=== PATIENT | male | born 1995 | race Two or more races ===

== ENCOUNTER 2017-04-23 19:23 | Emergency (ER) | payer OTHER ==
[~2017-04-23] VITALS: Ht 165.1 cm; Wt 63.0 kg
[2017-04-23] MEDS ORDERED: LEVA1TAB PO (19:36)
[2017-04-23] MEDS ORDERED: CELE1CAP4 PO (19:36)
--- NOTE | 2017-04-23 21:10 | REPUSA ---
Clinical history: Pain. Findings: Real-time ultrasound imaging of the testicles and scrotum was performed. The right testicle measures 4.3 x 2.1 x 2.9 cm. The left testicle measures 4.2 x 2.3 x 3.1 cm. The testicles demonstrat e normal echo texture and echogenicity. Normal color Doppler flow and arterial waveforms are seen ti aterally. There is a cyst in the head of the right epididymis measuring up to 3 mm. Multiple left-annika ed epididymal cysts are noted, the largest measuring up to 2 mm. No fluid collections are seen. Impression: Unremarkable ultrasound examination of the testicles. Bilateral epididymal cyst.
[2017-04-23 21:27] VITALS: BP 136/69
[2017-04-24] MEDS ORDERED: ULTR50TA8 PO (10:40)
[2017-04-24] MEDS ORDERED: IBUP-1022 PO (10:40)
== END 2017-04-23 21:34 | disposition home or self-care (01) ==
LOC: M ED 19:23
DX: N50.3 Cyst of epididymis (principal); Z79.899 Other long term (current) drug therapy; F17.210 Nicotine dependence, cigarettes, uncomplicated

== ENCOUNTER 2017-04-24 09:06 | Emergency (ER) | payer OTHER ==
[~2017-04-24] VITALS: Ht 165.1 cm; Wt 63.6 kg
[~2017-04-24 09:06] MED LIST: CELE1CAP4 PO; LEVA1TAB PO
[2017-04-24] MEDS ORDERED: traMADol 50 MG TAB PO ONE (10:00)
[2017-04-24] MEDS ORDERED: IBUPROFEN 800 MG TAB PO ONE (10:00)
[2017-04-24] MEDS ORDERED: ULTR50TA8 PO (10:40)
[2017-04-24] MEDS ORDERED: IBUP-1022 PO (10:40)
[2017-04-24 10:54] VITALS: BP 130/72
== END 2017-04-24 10:56 | disposition home or self-care (01) ==
LOC: M ED 09:06
DX: N50.3 Cyst of epididymis (principal); Z79.899 Other long term (current) drug therapy

== ENCOUNTER → 2017-06-02 | Outpatient (CLI) | payer OTHER ==
[~2017-06-02] MED LIST changes: +IBUP-1022 PO; +ULTR50TA8 PO
--- NOTE | 2017-06-16 00:37 | ECWPNPC ---
PATIENT NAME: JON CROWE : 1995 GENDER: MALE VISIT DATE: 06/02/2017 DISCHARGE DATE: 06/02/17 1256 VISIT LOCKED DATE TIME: PHYSICIAN: INDRA CARRASCO RESOURCE: INDRA CARRASCO REASON FOR APPOINTMENT 1. TESTICULAR PAIN HISTORY OF PRESENT ILLNESS FALL RISK SCREENING: SCREENING :NO FALLS IN THE PAST YEAR 22 YEAR OLD MALE PATIENT WITH HISTORY OF CHRONIC TESTICLE PAIN. PATIENT DESCRIBES THE PAIN SHARP AND THROBBING WITH A PAIN SCORE OF 6.5/10. PATIENT STATES HIS PAIN STARTED IN MARCH WITH NO SPECIFIC TRAUMA. PATIENT NOTICED SEVERE SWELLING IN THE TESTICLES AND SINCE THE SWELLING WENT DOWN THE PAIN IS STILL THERE. PATIENT STATES THAT ANY TYPE OF ACTIVITY INCLUDING RUNNING, SKIPPING, SQUATTING, BENDING, AND CARRYING ANY TYPE OF WEIGHT ON HIS SHOULDERS INCREASES THE PAIN IN GROIN AREA WHILE ICE AND LAYING ON HIS BACK HELPS TO DECREASE THE PAIN. PATIENT IS CURRENTLY USING TYLENOL AND IBUPROFEN TO AID IN PAIN RELIEF. PATIENT DENIES UNEXPLAINABLE WEIGHT LOSS, FEVER, CHILLS, NEW CHANGES ON HIS URINARY OR BOWEL CONTROL. PAIN SCREENING: PATIENT HAS A COMPLAINT OF ACUTE OR CHRONIC PAIN :YES CURRENT MEDICATIONS TAKING TYLENOL 325 MG TABLET 2 TABLETS NEEDED ORALLY EVERY 6 HRS TAKING IBUPROFEN 600 MG TABLET 1 TABLET WITH FOOD OR MILK ORALLY THREE TIMES A DAY NOT-TAKING LEVAQUIN 500 MG TABLET 1 TABLET ORALLY ONCE A DAY NOT-TAKING ULTRAM 50 MG TABLET 1 TABLET NEEDED ORALLY EVERY 6 HRS, MDD 4 MEDICATION LIST REVIEWED AND RECONCILED WITH THE PATIENT PAST MEDICAL HISTORY EPIDYMIS ALLERGIES N.K.D.A. SURGICAL HISTORY WISDOM TEETH FAMILY HISTORY FATHER: ALIVE MOTHER: ALIVE 3 BROTHER(S) , 2 SISTER(S) - HEALTHY. NO FAMILY HISTORY OF ANY UROLOGICAL DISEAES OR CANCERS. SOCIAL HISTORY GENERAL: TOBACCO USE ARE YOU A:CURRENT SMOKER ARE YOU INTERESTED IN QUITTING?THINKING ABOUT QUITTING COUNSELED THE PATIENT ON SMOKING CESSATION, EDUCATION [id number]/20/2017 HOW MANY CIGARETTES A DAY DO YOU SMOKE?6-10 PATIENT COUNSELED ON THE DANGERS OF TOBACCO USE AND URGED TO QUIT:06/02/2017 LUNG CANCER SCREENING SMOKING STATUS:CURRENT SMOKER ALCOHOL SCREENING POINTS5 INTERPRETATIONPOSITIVE RECREATIONAL DRUG USE DRUG USE?NO CAFFEINE CAFFEINE USE?YES HOW OFTEN AND HOW MUCH? COFFEE SEXUAL HX HAD SEX IN THE LAST 12 MONTHS (VAGINAL, ORAL, OR ANAL)?YES OCCUPATION: POLICE. MARITAL STATUS: SINGLE. JAINISM [id number] GNOSTICISM LANGUAGE LANGUAGES SPOKEN:[place]EN[place] EDUCATION LEVEL OF EDUCATION:NOT FINISHED COLLEGE PAIN CLINIC PFS, CLERGY, PUBLIC HEALTH REFERRALS HAS THE PATIENT BEEN EDUCATED REGARDING HIS/HER PLAN OF CARE?YES HAS THE PATIENT BEEN EDUCATED REGARDING PAIN, THE RISK FOR PAIN, THE IMPORTANCE OF EFFECTIVE PAIN MANAGEMENT, AND THE PAIN ASSESSMENT PROCESS?YES ADVANCE DIRECTIVES HEALTH CARE PROXY?NO DO YOU HAVE A DNR?NO LIVING WILL?NO POWER OF TAKE OUT WAITER?NO HOSPITALIZATION/MAJOR DIAGNOSTIC PROCEDURE DENIES PAST HOSPITALIZATION REVIEW OF SYSTEMS REVIEWED BY: PROVIDER: INDRA CARRASCO MD . CONSTITUTIONAL: ANY CHANGE IN YOUR MEDICAL CONDITION? NO . CHILLS NO . FEVER NO . INFECTION: DO YOU HAVE NEW INFECTIONS? NO . DO YOU HAVE HISTORY OF MRSA? NO . MUSCULOSKELETAL: ANY NEW PATTERNS OF PAIN OR NUMBNESS? NO . SYTEMIC LUPUS NO . GASTROENTEROLOGY: ANY NEW CHANGE IN BOWEL CONTROL? NO . BARRETTS ESOPHAGUS NO . CIRRHOSIS NO . HEPATITIS NO . LIVER FAILURE NO . ACID REFLUX NO . UNEXPLAINED WEIGHT LOSS NO . GENITOURINARY: ANY NEW CHANGE IN BLADDER CONTROL? NO . IS THERE A CHANCE YOU COULD BE ? NO . HEMATOLOGY/LYMPH: DO YOU TAKE ANY BLOOD THINNERS? (FOR EXAMPLE- COUMADIN, PLAVIX, AGGRENOX, PLATEL, PRADAXA, OR XARELTO) NO . WHEN WAS YOUR LAST DOSE? DATE: TIME: . LOW PLATELET COUNT NO . SICKLE CELL DISEASE NO . VON WILLIEBRANDS NO . FACTOR V LEIDEN NO . THALLASEMIA NO . ANEMIA NO . EASY BRUISING NO . NEUROLOGY: HAVE YOU FALLEN IN THE PAST 6 MONTHS? NO . ANY NEW EXTREMITY NUMBNESS OR WEAKNESS? NO . HEAD INJURY NO . DEMENTIA NO . CEREBRAL PALSY NO . MULTIPLE SCLEROSIS NO . DIZZINESS NO . HEADACHE NO . STROKES NO . VERTIGO NO . CARDIOLOGY: DO YOU HAVE A PACEMAKER OR DEFIBRILLATOR? NO . ANGINA NO . HEART ATTACK NO . HEART SURGERY NO . CONGESTIVE HEART FAILURE/FLUID OVERLOAD NO . CHEST PAIN NO . HIGH BLOOD PRESSURE NO . IRREGULAR HEART BEAT NO . RESPIRATORY: HAVE YOU BEEN SICK IN THE PAST WEEK? YES, URI RECENTLY . FEVER NO . FLU LIKE SYMPTOMS? NO . CPAP NO . BYPAP NO . ASTHMA NO . EMPHYSEMA NO . CHRONIC LUNG DISEASES NO . SHORTNESS OF BREATH ON EXERTION NO . COUGH NO . SNORING NO . INTEGUMENTARY: DO YOU HAVE ANY RASHES OR OPEN SORES? NO . ALLERGIC/IMMUNO: ARE YOU ALLERGIC TO SHELLFISH OR IV DYE? NO . ANY NEW ALLERGIES? NO . PSYCHIATRIC: DO YOU HAVE THOUGHTS OF HURTING YOURSELF OR SOMEONE ELSE? NO . ARE YOU ABUSED, NEGLECTED, OR IN AN UNSAFE ENVIRONMENT? NO . ENDOCRINOLOGY: ARE YOU DIABETIC? NO . THYROID DISORDER NO . OTHER: DO YOU NEED ANY PRESCRIPTIONS? NO . IF YES, PLEASE LIST: ____ . ANY NEW PROBLEMS WITH YOUR MEDICATIONS? NO . WHEN DID YOU LAST EAT? ____ . WHEN DID YOU LAST DRINK? ____ . WHAT DID YOU LAST DRINK? ____ . NAME OF PERSON DRIVING YOU HOME? ____ . DO YOU HAVE ANY OTHER QUESTIONS OR CONCERNS NO, PT STATES HE HAS NOT RECEIVED FLU VACCINE THIS YEAR, BUT PLANS TO . VITAL SIGNS WT 139 LBS, HT 65 IN, BMI 23.13 INDEX, BP 113/84 MM HG, HR 72 /MIN, RR 16 /MIN, TEMP 98.4 F, OXYGEN SAT % 99%, NA INITIALS SC 11:05, REVIEWED BY: EM. EXAMINATION : PATIENT IS ALERT O X 3 AND COOPERATIVE. ALLODYNIA OVER THE RIGHT SIDE OF THE TESTICLE. ASSESSMENTS NEURALGIA AND NEURITIS, UNSPECIFIED - M79.2 (PRIMARY) TREATMENT NEURALGIA AND NEURITIS, UNSPECIFIED NOTES: WE DISCUSSED SEVERAL ISSUES WITH MR. BROWNING'S PAIN MANAGEMENT CASE. AT THIS TIME I WOULD LIKE THE PATIENT TO START USING GABAPENTIN TO SEE IF IT WILL AID IN THE NEUROPATHIC PAIN. PATIENT WAS ADVISED TO STOP THE MEDICATION IF HE HAS ANY ADVERSE SIDE EFFECTS. WE DISCUSSED SEVERAL OPTIONS THE PATIENT HAS TO TRY TO AID IN PAIN RELIEF. WE DISCUSSED IN DETAIL THE DCS AND GAVE THE PATIENT INFORMATION TO REVIEW. PATIENT WILL FOLLOW UP IN 2 WEEKS TO FURTHER DISCUSS THE DCS. INSTRUCTIONS WERE GIVEN, QUESTIONS WERE ANSWERED, PATIENT REPORTS UNDERSTANDING AND AGREES WITH THE PLAN. I, VIVIENNE PAYNE, DOCUMENTED THE ABOVE INFORMATION ACTING A SCRIBE FOR DR. CARRASCO. I HAVE REVIEWED THE ABOVE DOCUMENT, WRITTEN BY VIVIENNE HSIEH AND I VERIFY THAT IT IS ACCURATE. DEAR DR. VALENTIN: THANK YOU FOR YOUR KIND REFERRAL OF MR. CROWE. IF YOU WANT TO DISCUSS HER/HIS CASE WITH ME PLEASE CALL ME AT THE PAIN CENTER AT [phone]. SINCERELY, INDRA CARRASCO MD PAIN MEDICINE. OTHERS START GABAPENTIN CAPSULE, 300 MG, 1 CAPSULE, ORALLY, BEFORE BEDTIME FOR PAIN MDD1, 30 DAY(S), 30, REFILLS 1 PROCEDURE CODES FA211 ESTABILISHED PATIENT [facility] CHARGE G8427 DOC MEDS VERIFIED W/PT OR RE G8730 PAIN ASSESS POS TOOL F/U PLAN DOC DISPOSITION & COMMUNICATION FOLLOW UP 3 WEEKS ELECTRONICALLY SIGNED BY INDRA CARRASCO MD ON 06/15/2017 AT 02:12 PM EDT DISCLAIMER : THIS IS A VISIT SUMMARY EXTRACTED FROM THE [employer] CHART. IT IS NOT A COPY OF THE [employer] PROGRESS NOTE. MTDD
== END ==
LOC: M PAIN 10:45
PROVIDERS: ATTEND Anesthesiology
DX: G89.29 Other chronic pain (principal); M79.2 Neuralgia and neuritis, unspecified; F17.210 Nicotine dependence, cigarettes, uncomplicated; Z79.1 Long term (current) use of non-steroidal anti-inflammatories (NSAID); Z79.899 Other long term (current) drug therapy

== ENCOUNTER → 2017-06-21 | Outpatient (CLI) | payer OTHER ==
--- NOTE | 2017-07-10 00:22 | ECWPNPC ---
PATIENT NAME: JON CROWE : 1995 GENDER: MALE VISIT DATE: 06/21/2017 DISCHARGE DATE: 06/21/17 1708 VISIT LOCKED DATE TIME: PHYSICIAN: INDRA CARRASCO RESOURCE: INDRA CARRASCO REASON FOR APPOINTMENT 1. TESTICULAR PAIN HISTORY OF PRESENT ILLNESS HISTORY OF PRESENT ILLNESS: PAIN THE PATIENT DESCRIBES THE PAIN... 22 YEAR OLD MALE PATIENT WITH HISTORY OF CHRONIC TESTICLE PAIN. PATIENT DESCRIBES THE PAIN SHARP AND THROBBING WITH A PAIN SCORE OF 6.5/10. PATIENT STATES HIS PAIN STARTED IN MARCH WITH NO SPECIFIC TRAUMA. PATIENT NOTICED SEVERE SWELLING IN THE TESTICLES AND SINCE THE SWELLING WENT DOWN THE PAIN IS STILL THERE. PATIENT STATES THAT ANY TYPE OF ACTIVITY INCLUDING RUNNING, SKIPPING, SQUATTING, BENDING, AND CARRYING ANY TYPE OF WEIGHT ON HIS SHOULDERS INCREASES THE PAIN IN GROIN AREA WHILE ICE AND LAYING ON HIS BACK HELPS TO DECREASE THE PAIN. PATIENT IS CURRENTLY USING GABAPENTIN, TYLENOL AND IBUPROFEN TO AID IN PAIN RELIEF. PATIENT DENIES UNEXPLAINABLE WEIGHT LOSS, FEVER, CHILLS, NEW CHANGES ON HIS URINARY OR BOWEL CONTROL. FALL RISK SCREENING: SCREENING :NO FALLS IN THE PAST YEAR CURRENT MEDICATIONS TAKING GABAPENTIN 300 MG CAPSULE 2 CAPSULES ORALLY THREE TIMES A DAY TAKING AMITRIPTYLINE HCL 10 MG TABLET 1 TABLET ORALLY ONCE A DAY, NOTES: UNSURE OF DOSE NOT-TAKING LEVAQUIN 500 MG TABLET 1 TABLET ORALLY ONCE A DAY NOT-TAKING ULTRAM 50 MG TABLET 1 TABLET NEEDED ORALLY EVERY 6 HRS, MDD 4 NOT-TAKING TYLENOL 325 MG TABLET 2 TABLETS NEEDED ORALLY EVERY 6 HRS NOT-TAKING IBUPROFEN 600 MG TABLET 1 TABLET WITH FOOD OR MILK ORALLY THREE TIMES A DAY MEDICATION LIST REVIEWED AND RECONCILED WITH THE PATIENT PAST MEDICAL HISTORY EPIDYMIS ALLERGIES N.K.D.A. SURGICAL HISTORY WISDOM TEETH FAMILY HISTORY FATHER: ALIVE MOTHER: ALIVE 3 BROTHER(S) , 2 SISTER(S) - HEALTHY. NO FAMILY HISTORY OF ANY UROLOGICAL DISEAES OR CANCERS. SOCIAL HISTORY GENERAL: TOBACCO USE ARE YOU A:CURRENT SMOKER ARE YOU INTERESTED IN QUITTING?READY TO QUIT COUNSELED THE PATIENT ON TOBACCO USE, CESSATION [id number]/08/2017 HOW MANY CIGARETTES A DAY DO YOU SMOKE?6-10 PATIENT COUNSELED ON THE DANGERS OF TOBACCO USE AND URGED TO QUIT:06/21/2017 LUNG CANCER SCREENING SMOKING STATUS:CURRENT SMOKER ALCOHOL SCREENING DID YOU HAVE A DRINK CONTAINING ALCOHOL IN THE PAST YEAR?YES HOW MANY DRINKS DID YOU HAVE ON A TYPICAL DAY WHEN YOU WERE DRINKING IN THE PAST YEAR?1 OR 2 (0 POINTS) POINTS5 INTERPRETATIONPOSITIVE HOW OFTEN DID YOU HAVE A DRINK CONTAINING ALCOHOL IN THE PAST YEAR?FOUR OR MORE TIMES A WEEK (4 POINTS) HOW OFTEN DID YOU HAVE SIX OR MORE DRINKS ON ONE OCCASION IN THE PAST YEAR?LESS THAN MONTHLY (1 POINT) RECREATIONAL DRUG USE DRUG USE?NO CAFFEINE CAFFEINE USE?YES HOW OFTEN AND HOW MUCH? COFFEE SEXUAL HX HAD SEX IN THE LAST 12 MONTHS (VAGINAL, ORAL, OR ANAL)?YES OCCUPATION: [employer]. MARITAL STATUS: SINGLE. SABIANIST [id number] CONFUCIANISM LANGUAGE LANGUAGES SPOKEN:ITALIAN EDUCATION LEVEL OF EDUCATION:NOT FINISHED COLLEGE PAIN CLINIC PFS, CLERGY, PUBLIC HEALTH REFERRALS HAS THE PATIENT BEEN EDUCATED REGARDING HIS/HER PLAN OF CARE?YES HAS THE PATIENT BEEN EDUCATED REGARDING PAIN, THE RISK FOR PAIN, THE IMPORTANCE OF EFFECTIVE PAIN MANAGEMENT, AND THE PAIN ASSESSMENT PROCESS?YES ADVANCE DIRECTIVES HEALTH CARE PROXY?NO DO YOU HAVE A DNR?NO LIVING WILL?NO POWER OF CARE SUPPORT REPRESENTATIVE?NO HOSPITALIZATION/MAJOR DIAGNOSTIC PROCEDURE DENIES PAST HOSPITALIZATION REVIEW OF SYSTEMS REVIEWED BY: PROVIDER: INDRA CARRASCO MD . CONSTITUTIONAL: ANY CHANGE IN YOUR MEDICAL CONDITION? NO . CHILLS NO . FEVER NO . INFECTION: DO YOU HAVE NEW INFECTIONS? NO . DO YOU HAVE HISTORY OF MRSA? NO . MUSCULOSKELETAL: ANY NEW PATTERNS OF PAIN OR NUMBNESS? NO . GASTROENTEROLOGY: ANY NEW CHANGE IN BOWEL CONTROL? NO . GENITOURINARY: ANY NEW CHANGE IN BLADDER CONTROL? NO . IS THERE A CHANCE YOU COULD BE ? NO . HEMATOLOGY/LYMPH: DO YOU TAKE ANY BLOOD THINNERS? (FOR EXAMPLE- COUMADIN, PLAVIX, AGGRENOX, PLATEL, PRADAXA, OR XARELTO) NO . WHEN WAS YOUR LAST DOSE? DATE: TIME: . NEUROLOGY: HAVE YOU FALLEN IN THE PAST 6 MONTHS? NO . ANY NEW EXTREMITY NUMBNESS OR WEAKNESS? NO . CARDIOLOGY: DO YOU HAVE A PACEMAKER OR DEFIBRILLATOR? NO . RESPIRATORY: HAVE YOU BEEN SICK IN THE PAST WEEK? NO . FEVER NO . FLU LIKE SYMPTOMS? NO . COUGH NO . INTEGUMENTARY: DO YOU HAVE ANY RASHES OR OPEN SORES? NO . ALLERGIC/IMMUNO: ARE YOU ALLERGIC TO SHELLFISH OR IV DYE? NO . ANY NEW ALLERGIES? NO . PSYCHIATRIC: DO YOU HAVE THOUGHTS OF HURTING YOURSELF OR SOMEONE ELSE? NO . ARE YOU ABUSED, NEGLECTED, OR IN AN UNSAFE ENVIRONMENT? NO . ENDOCRINOLOGY: ARE YOU DIABETIC? NO . OTHER: DO YOU NEED ANY PRESCRIPTIONS? NO . IF YES, PLEASE LIST: ____ . ANY NEW PROBLEMS WITH YOUR MEDICATIONS? NO . WHEN DID YOU LAST EAT? ____ . WHEN DID YOU LAST DRINK? ____ . WHAT DID YOU LAST DRINK? ____ . NAME OF PERSON DRIVING YOU HOME? ____ . DO YOU HAVE ANY OTHER QUESTIONS OR CONCERNS NO . VITAL SIGNS WT 140.0 LBS, HT 65 IN, BMI 23.29 INDEX, BP 121/69 MM HG, HR 64 /MIN, RR 16 /MIN, TEMP 98.1 F, OXYGEN SAT % 99%, NA INITIALS TL 1521, REVIEWED BY: BRENDA. EXAMINATION : PATIENT IS ALERT O X 3 AND COOPERATIVE. ASSESSMENTS NEURALGIA AND NEURITIS, UNSPECIFIED - M79.2 (PRIMARY) TREATMENT NEURALGIA AND NEURITIS, UNSPECIFIED NOTES: WE DISCUSSED SEVERAL ISSUES WITH MR. BROWNING'S PAIN MANAGEMENT CASE. AT THIS TIME THE PATIENT WILL CONTINUE WITH THE SAME MEDICATION BEFORE. WE DISCUSSED IN DETAIL THE DCS TRIAL PROCESS THE PATIENT HAD QUESTIONS ABOUT THE PROCESS. PATIENT WAS MADE AWARE THAT THE TRIAL WILL LAST 5 DAYS WITH THE CABLES COMING OUT OF THE LOWER BACK WITH A BATTERY SOURCE THAT WILL BE PLACED IN A BELT. THE CABLES WILL BE PLACED ON A MONDAY AND REMOVED ON A MONDAY. PATIENT WAS MADE AWARE THAT HE WILL NEED TO STAY ONE NIGHT IN THE HOSPITAL AND TO AVOID PAIN MEDICATIONS SO THAT HE MAY HAVE AN ACCURATE TRIAL. AT THIS TIME THE PATIENT WOULD LIKE TO WAIT FOR THE DCS TRIAL AND WOULD LIKE TO DO MORE RESEARCH. PATIENT WILL FOLLOW UP WITH THE EQUIPMENT INSPECTOR TO DISCUSS MEDICATIONS. PATIENT WAS ADVISED TO BRING THE GABAPENTIN TO THE NEXT VISIT TO BE SURE WHAT AMOUNT THE PATIENT IS USING DAILY.. PATIENT MAY BE A CANDIDATE FOR [facility] BUT I WOULD LIKE TO HOLD OFF ON THE MEDICATION UNTIL WE KNOW WHAT DOSE HE IS USING FOR GABAPENTIN. PATIENT WILL FOLLOW UP IN 6 WEEKS. INSTRUCTIONS WERE GIVEN, QUESTIONS WERE ANSWERED, PATIENT REPORTS UNDERSTANDING AND AGREES WITH THE PLAN. I, VIVIENNE PAYNE, DOCUMENTED THE ABOVE INFORMATION ACTING A SCRIBE FOR DR. CARRASCO. I HAVE REVIEWED THE ABOVE DOCUMENT, WRITTEN BY VIVIENNE HSIEH AND I VERIFY THAT IT IS ACCURATE. PROCEDURE CODES FA211 ESTABILISHED PATIENT [facility] CHARGE G8427 DOC MEDS VERIFIED W/PT OR RE G2216 PAIN ASSESS POS TOOL F/U PLAN DOC DISPOSITION & COMMUNICATION FOLLOW UP 3 WEEKS ELECTRONICALLY SIGNED BY INDRA CARRASCO MD ON 07/09/2017 AT 04:28 PM EST DISCLAIMER : THIS IS A VISIT SUMMARY EXTRACTED FROM THE [employer] CHART. IT IS NOT A COPY OF THE [employer] PROGRESS NOTE. NBAD
== END ==
LOC: M PAIN 15:15
PROVIDERS: ATTEND Anesthesiology
DX: M79.2 Neuralgia and neuritis, unspecified (principal); G89.29 Other chronic pain; N50.819 Testicular pain, unspecified; F17.210 Nicotine dependence, cigarettes, uncomplicated; Z79.899 Other long term (current) drug therapy

== ENCOUNTER → 2017-07-05 | Outpatient (CLI) | payer OTHER ==
--- NOTE | 2017-07-17 00:20 | ECWPNPC ---
PATIENT NAME: JON CROWE : 1995 GENDER: MALE VISIT DATE: 07/05/2017 DISCHARGE DATE: 07/05/17 1125 VISIT LOCKED DATE TIME: PHYSICIAN: LYNN FIERRO RESOURCE: LYNN FIERRO REASON FOR APPOINTMENT 1. MED MANAGEMENT HISTORY OF PRESENT ILLNESS HISTORY OF PRESENT ILLNESS: PAIN THE PATIENT DESCRIBES THE PAIN... FALL RISK SCREENING: SCREENING :NO FALLS IN THE PAST YEAR TODAY'S VISIT: NOTES: RATES PAIN TODAY 7.5/10. PAIN IS DESCRIBES TENDER AND THROBBING WITH RADIATIONTO THE BILATERAL UPPER THIGH FROM HTE ILIOINGUINAL REGION. HAS BEEN ON GABAPENTIN AND AMITRYPTLINE WITHOUT MUCH EFFECT. HAS PERSISTANT ACID REFLUX. . CURRENT MEDICATIONS TAKING TYLENOL 325 MG TABLET 2 TABLETS NEEDED ORALLY EVERY 6 HRS TAKING IBUPROFEN 600 MG TABLET 1 TABLET WITH FOOD OR MILK ORALLY THREE TIMES A DAY TAKING GABAPENTIN 300 MG CAPSULE 2 CAPSULES ORALLY THREE TIMES A DAY TAKING AMITRIPTYLINE HCL 10 MG TABLET 1 TABLET ORALLY ONCE A DAY NOT-TAKING LEVAQUIN 500 MG TABLET 1 TABLET ORALLY ONCE A DAY NOT-TAKING ULTRAM 50 MG TABLET 1 TABLET NEEDED ORALLY EVERY 6 HRS, MDD 4 MEDICATION LIST REVIEWED AND RECONCILED WITH THE PATIENT PAST MEDICAL HISTORY EPIDYMIS ALLERGIES N.K.D.A. SURGICAL HISTORY WISDOM TEETH SOCIAL HISTORY GENERAL: TOBACCO USE ARE YOU A:CURRENT SMOKER ARE YOU INTERESTED IN QUITTING?READY TO QUIT COUNSELED THE PATIENT ON TOBACCO USE, CESSATION [id number]/22/2017 PT IS DOING WELL ON OWN - DOWN TO 2 CIGARETTS PER WEEK NOW HOW MANY CIGARETTES A DAY DO YOU SMOKE?6-10 PATIENT COUNSELED ON THE DANGERS OF TOBACCO USE AND URGED TO QUIT:06/21/2017 LUNG CANCER SCREENING SMOKING STATUS:CURRENT SMOKER ALCOHOL SCREENING DID YOU HAVE A DRINK CONTAINING ALCOHOL IN THE PAST YEAR?YES HOW MANY DRINKS DID YOU HAVE ON A TYPICAL DAY WHEN YOU WERE DRINKING IN THE PAST YEAR?1 OR 2 (0 POINTS) POINTS5 INTERPRETATIONPOSITIVE HOW OFTEN DID YOU HAVE A DRINK CONTAINING ALCOHOL IN THE PAST YEAR?FOUR OR MORE TIMES A WEEK (4 POINTS) HOW OFTEN DID YOU HAVE SIX OR MORE DRINKS ON ONE OCCASION IN THE PAST YEAR?LESS THAN MONTHLY (1 POINT) RECREATIONAL DRUG USE DRUG USE?NO CAFFEINE CAFFEINE USE?YES HOW OFTEN AND HOW MUCH? COFFEE SEXUAL HX HAD SEX IN THE LAST 12 MONTHS (VAGINAL, ORAL, OR ANAL)?YES OCCUPATION: [employer]. MARITAL STATUS: SINGLE. JEWISH [id number] JAINISM LANGUAGE LANGUAGES SPOKEN:WELSH EDUCATION LEVEL OF EDUCATION:NOT FINISHED COLLEGE PAIN CLINIC PFS, CLERGY, PUBLIC HEALTH REFERRALS HAS THE PATIENT BEEN EDUCATED REGARDING HIS/HER PLAN OF CARE?YES HAS THE PATIENT BEEN EDUCATED REGARDING PAIN, THE RISK FOR PAIN, THE IMPORTANCE OF EFFECTIVE PAIN MANAGEMENT, AND THE PAIN ASSESSMENT PROCESS?YES ADVANCE DIRECTIVES HEALTH CARE PROXY?NO DO YOU HAVE A DNR?NO LIVING WILL?NO POWER OF COLLEGE SPECIALIST?NO REVIEW OF SYSTEMS REVIEWED BY: PROVIDER: . CONSTITUTIONAL: ANY CHANGE IN YOUR MEDICAL CONDITION? NO . CHILLS NO . FEVER NO . INFECTION: DO YOU HAVE NEW INFECTIONS? NO . DO YOU HAVE HISTORY OF MRSA? NO . MUSCULOSKELETAL: ANY NEW PATTERNS OF PAIN OR NUMBNESS? NO . GASTROENTEROLOGY: ANY NEW CHANGE IN BOWEL CONTROL? NO . GENITOURINARY: ANY NEW CHANGE IN BLADDER CONTROL? NO . IS THERE A CHANCE YOU COULD BE ? NO . HEMATOLOGY/LYMPH: DO YOU TAKE ANY BLOOD THINNERS? (FOR EXAMPLE- COUMADIN, PLAVIX, AGGRENOX, PLATEL, PRADAXA, OR XARELTO) NO . WHEN WAS YOUR LAST DOSE? DATE: TIME: . NEUROLOGY: HAVE YOU FALLEN IN THE PAST 6 MONTHS? NO . ANY NEW EXTREMITY NUMBNESS OR WEAKNESS? NO . CARDIOLOGY: DO YOU HAVE A PACEMAKER OR DEFIBRILLATOR? NO . RESPIRATORY: HAVE YOU BEEN SICK IN THE PAST WEEK? NO . FEVER NO . FLU LIKE SYMPTOMS? NO . COUGH NO . INTEGUMENTARY: DO YOU HAVE ANY RASHES OR OPEN SORES? NO . ALLERGIC/IMMUNO: ARE YOU ALLERGIC TO SHELLFISH OR IV DYE? NO . ANY NEW ALLERGIES? NO . PSYCHIATRIC: DO YOU HAVE THOUGHTS OF HURTING YOURSELF OR SOMEONE ELSE? NO . ARE YOU ABUSED, NEGLECTED, OR IN AN UNSAFE ENVIRONMENT? NO . ENDOCRINOLOGY: ARE YOU DIABETIC? NO . OTHER: DO YOU NEED ANY PRESCRIPTIONS? NO . IF YES, PLEASE LIST: ____ . ANY NEW PROBLEMS WITH YOUR MEDICATIONS? YES, GABAPENTIN DOES NOT SEEM TO BE HELPING ANY . WHEN DID YOU LAST EAT? ____ . WHEN DID YOU LAST DRINK? ____ . WHAT DID YOU LAST DRINK? ____ . NAME OF PERSON DRIVING YOU HOME? ____ . DO YOU HAVE ANY OTHER QUESTIONS OR CONCERNS NO . VITAL SIGNS WT 140 LBS, HT 65 IN, BMI 23.29 INDEX, BP 126/73 MM HG, HR 71 /MIN, RR 16 /MIN, TEMP 98.1 F, OXYGEN SAT % 98%, NA INITIALS AW 1002, REVIEWED BY: NL. EXAMINATION GENERAL EXAMINATION: PSYCHALERT , ORIENTED X 3 , APPROPRIATE MOOD AND AFFECT , GOOD EYE CONTACT. LUNGS:CLEAR TO AUSCULTATION BILATERALLY. HEART:NORMAL S1S2, NO MURMURS, CLICK OR RUBS. ABDOMEN:HYPERSENSITIVE TO LIGHT TOUCH BILATERALLY OVER ILIOINGUINAL REGIONS AND UPPER MEDIAL THIGH. . 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 TREATMENT TESTICULAR PAIN STOP AMITRIPTYLINE HCL TABLET, 10 MG, 1 TABLET, ORALLY, ONCE A DAY REFILL ULTRAM TABLET, 50 MG, 1 TABLET NEEDED, ORALLY, EVERY 6 HRS, MDD 4, 10 DAY(S), 40, REFILLS 0 START LYRICA CAPSULE, 75 MG, 1 CAPSULE, ORALLY, TWICE A DAY, 30 DAY(S), 60 CAPSULE, REFILLS 1 START CYCLOBENZAPRINE HCL TABLET, 10 MG, 1 TABLET NEEDED, ORALLY, THREE TIMES A DAY, 30 DAY(S), 90 TABLET, REFILLS [address] [facility] PELVIS W/O FOL BY [id number],SUSAN M 07/05/2017 11:08:44 AM > TESTICULAR PAIN AND SWELLING NOTES: USE IBUPROFEN INFREQUENTLY - USE FOR TESTICULAR SWELLING IF NEEDED. PROCEDURE CODES FA211 ESTABILISHED PATIENT [facility] CHARGE DISPOSITION & COMMUNICATION FOLLOW UP 3 WEEKS (REASON: CHECK AUTH FOR CT OF ABD AND PELVIS) ELECTRONICALLY SIGNED BY ARIELA VILLALOBOS ON 07/15/2017 AT 01:28 PM EST DISCLAIMER : THIS IS A VISIT SUMMARY EXTRACTED FROM THE [employer] CHART. IT IS NOT A COPY OF THE [employer] PROGRESS NOTE. ARMA
== END ==
LOC: M PAIN 09:45
PROVIDERS: ATTEND Nurse Practitioner Family
DX: G89.29 Other chronic pain (principal); N50.819 Testicular pain, unspecified; G57.80 Other specified mononeuropathies of unspecified lower limb; F17.210 Nicotine dependence, cigarettes, uncomplicated; Z79.1 Long term (current) use of non-steroidal anti-inflammatories (NSAID); Z79.899 Other long term (current) drug therapy

== ENCOUNTER → 2017-07-14 | Outpatient (CLI) | payer OTHER ==
[~2017-07-14] MED LIST changes: +GASTROGRAFIN SOLUTION 30ML (Q9963) As Ordered ONE; +ISOVUE-370 76% 100ML VIAL (Q9967) As Ordered ONE
--- NOTE | 2017-07-14 15:31 | REP ---
Clinical: Groin and testicular pain. Technique: Axial contrast enhanced images of the pelvis using oral (per protocol) and 100 ml Isovue 370 intravenous contrast material with coronal and sagittal re-formations. Findings: Visualized small and large bowel including the appendix is normal. Pelvis demonstrates normal bladder and age appropriate prostate/seminal vesicles. No pelvic fluid, free air, or adenopathy. Vasculature appears normal. Groin and scrotum appears normal by CT evaluation. Surrounding osseous structures are intact. Impression: Normal pelvic CT. Signed by Charlie Cameron MD 07/14/2017 03:23 P
== END ==
LOC: M RAD 13:07
PROVIDERS: ATTEND Nurse Practitioner Family
DX: N50.819 Testicular pain, unspecified (principal)

== ENCOUNTER → 2017-08-02 | Outpatient (CLI) | payer OTHER | LOC: M PAIN 14:00 | DX: N50.819 Testicular pain, unspecified (principal); G57.80 Other specified mononeuropathies of unspecified lower limb; F17.210 Nicotine dependence, cigarettes, uncomplicated; Z79.1 Long term (current) use of non-steroidal anti-inflammatories (NSAID); Z79.899 Other long term (current) drug therapy | CPT/HCPCS: G0463 ==

== ENCOUNTER → 2017-08-25 | Outpatient (CLI) | payer OTHER | LOC: M PAIN 09:15 | DX: N50.819 Testicular pain, unspecified (principal); G57.80 Other specified mononeuropathies of unspecified lower limb; F17.210 Nicotine dependence, cigarettes, uncomplicated; Z79.1 Long term (current) use of non-steroidal anti-inflammatories (NSAID); Z79.899 Other long term (current) drug therapy | CPT/HCPCS: G0463 ==

== ENCOUNTER → 2017-09-22 | Outpatient (CLI) | payer OTHER | LOC: M PAIN 09:15 | DX: N50.819 Testicular pain, unspecified (principal); G57.80 Other specified mononeuropathies of unspecified lower limb; F17.210 Nicotine dependence, cigarettes, uncomplicated; Z79.1 Long term (current) use of non-steroidal anti-inflammatories (NSAID); Z79.899 Other long term (current) drug therapy | CPT/HCPCS: G0463 ==

== ENCOUNTER → 2017-10-02 | Outpatient (CLI) | payer OTHER | LOC: M PAIN 15:15 | DX: G89.29 Other chronic pain (principal); N50.819 Testicular pain, unspecified; G57.80 Other specified mononeuropathies of unspecified lower limb; F17.210 Nicotine dependence, cigarettes, uncomplicated; Z79.899 Other long term (current) drug therapy | CPT/HCPCS: G0463 ==

== ENCOUNTER → 2017-10-16 | Outpatient (CLI) | payer OTHER ==
[~2017-10-16] MED LIST changes: -CELE1CAP4 PO; -GASTROGRAFIN SOLUTION 30ML (Q9963) As Ordered ONE; -IBUP-1022 PO; -ISOVUE-370 76% 100ML VIAL (Q9967) As Ordered ONE; -LEVA1TAB PO; +PROHANCE 279.3MG/ML 15ML VIAL (A9576) As Ordered; -ULTR50TA8 PO
== END ==
LOC: M RAD 12:32
DX: N28.1 Cyst of kidney, acquired (principal)
CPT/HCPCS: A9576

== ENCOUNTER 2017-12-04 17:28 | Emergency (ER) | payer OTHER ==
[2017-12-04] MEDS: NS 1,000 ML IV ×2 (18:43→20:30)
[2017-12-04] MEDS: ONDANSETRON 4MG/2ML VIAL (J2405) IV (18:43)
[2017-12-04] MEDS: MORPHINE 4 MG/ML 1ML VIAL/SYRINGE (J2270) IV ×2 (18:44→20:26)
[2017-12-04 18:57] LABS: BASO % 0.2 % (0.0-1.0); HEMATOCRIT 45.2 % (42.0-52.0); HEMOGLOBIN 16.1 g/dl (13.5-17.5); IMMATURE GRANULOCYTE % 0.3 % (0-3.0); LYMPH # 0.6 10^3/uL (1.5-6.5); LYMPH % 4.4 % (24.0-44.0); MEAN CORPUSCULAR HEMOGLOBIN 29.9 pg (27.0-33.0); MEAN CORPUSCULAR HGB CONC 35.6 g/dl (32.0-36.5); MONO # 0.5 10^3/uL (0.0-0.8); MONO % 4.1 % (0.0-5.0); NEUTROPHILS # 11.9 10^3/uL (1.8-7.7); PLATELET COUNT, AUTOMATED 299 10^3/uL (150-450); RED BLOOD COUNT 5.38 10^6/uL (4.30-6.10); WHITE BLOOD COUNT 13.1 10^3/uL (4.0-10.0)
[2017-12-04] MEDS ORDERED: ISOVUE-370 76% 100ML VIAL (Q9967) As Ordered (19:23)
[2017-12-04 19:26] LABS: ALBUMIN 4.7 GM/DL (3.2-5.2); ALBUMIN/GLOBULIN RATIO 1.07 (1.00-1.93); ALKALINE PHOSPHATASE 60 U/L (45-117); ALT/SGPT 30 U/L (12-78); ANION GAP 11 MEQ/L (8-16); AST/SGOT 19 U/L (7-37); BILIRUBIN,DIRECT 0.2 MG/DL (0.0-0.2); BILIRUBIN,TOTAL 0.9 MG/DL (0.2-1.0); BLOOD UREA NITROGEN 17 MG/DL (7-18); CALCIUM LEVEL 9.5 MG/DL (8.5-10.1); CARBON DIOXIDE LEVEL 24 MEQ/L (21-32); CHLORIDE LEVEL 102 MEQ/L (98-107); CREATININE FOR GFR 1.13 MG/DL (0.70-1.30); GLOMERULAR FILTRATION RATE > 60.0 (>60); GLUCOSE, FASTING 109 MG/DL (70-100); LIPASE 66 U/L (73-393); POTASSIUM SERUM 3.5 MEQ/L (3.5-5.1); SODIUM LEVEL 137 MEQ/L (136-145); TOTAL PROTEIN 9.1 GM/DL (6.4-8.2)
[2017-12-04 19:40] LABS: LACTIC ACID SEPSIS PROTOCOL 3.3 MMOL/L (0.4-2.0)
[2017-12-04 20:24] LABS: KETONE, URINE AUTO RFX TRACE mg/dL (NEGATIVE); LEUKOCYTE ESTERASE UR AUTO RFX NEGATIVE (NEGATIVE); NITRITE, URINE AUTO RFX NEGATIVE (NEGATIVE); RBC, URINE AUTO RFX 0 /HPF (0-3); SPECIFIC GRAVITY UR AUTO RFX 1.048 (1.002-1.035); SQUAM EPITHELIAL CELL UR AURFX 0 /HPF (0-6); WBC, URINE AUTO RFX 0 /HPF (0-3)
== END 2017-12-05 00:48 | disposition home or self-care (01) ==
LOC: M ED 12-05 00:48
DX: K52.9 Noninfective gastroenteritis and colitis, unspecified (principal); E86.0 Dehydration; Z87.891 Personal history of nicotine dependence; N44.2 Benign cyst of testis; N28.1 Cyst of kidney, acquired; Z79.899 Other long term (current) drug therapy
CPT/HCPCS: J2270

== ENCOUNTER → 2018-01-12 | Outpatient (CLI) | payer OTHER | LOC: M PAIN 14:15 | DX: N50.819 Testicular pain, unspecified (principal); G89.29 Other chronic pain; Z79.899 Other long term (current) drug therapy | CPT/HCPCS: G0463 ==

== ENCOUNTER 2018-01-29 07:41 | Day surgery (SDC) | payer OTHER ==
[~2018-01-29 07:41] MED LIST changes: +LIDOCAINE 2% INJ 100 MG/5 ML SDV (FOR ANES.) As Ordered; +MIDAZOLAM INJ 2 MG/2 ML VIAL (J2250) As Ordered; -PROHANCE 279.3MG/ML 15ML VIAL (A9576) As Ordered; +PROPOFOL 200 MG/20 ML VIAL As Ordered; +fentaNYL 100 MCG/2 ML INJECTION (J3010) As Ordered
[2018-01-29] MEDS ORDERED: LR 1,000 ML IV (08:00)
[2018-01-29] MEDS: ISOVUE-300 61% 50ML VIAL (Q9967) As Ordered (09:10)
[2018-01-29] MEDS: BUPIVACAINE HCL 0.25% 10 ML VIAL As Ordered (09:11)
[2018-01-29] MEDS: ceFAZolin SOD 1 GM in D5W MINI-BAG PLUS 50 ML IV ×3 (09:35→23:34)
[2018-01-29] MEDS ORDERED: ONDANSETRON 4MG/2ML VIAL (J2405) As Ordered (10:54)
[2018-01-29] MEDS: LIDOCAINE W/EPINEPHRINE 1% 20ML VIAL As Ordered (11:02)
[2018-01-29] MEDS: LR 1,000 ML IV (11:31)
[2018-01-29] MEDS ORDERED: PERCOCET 5MG/325MG TAB As Ordered (11:46)
[2018-01-29] MEDS ORDERED: fentaNYL 100 MCG/2 ML INJECTION (J3010) As Ordered (11:46)
[2018-01-29] MEDS: PERCOCET 5MG/325MG TAB PO (11:50)
[2018-01-29] MEDS: fentaNYL 100 MCG/2 ML INJECTION (J3010) IV ×4 (11:50→12:05)
[2018-01-29] MEDS ORDERED: ONDANSETRON 4MG/2ML VIAL (J2405) IV (12:15)
[2018-01-29] MEDS ORDERED: CARISOPRODOL 350 MG TAB PO (12:15)
[2018-01-29] MEDS ORDERED: METOCLOPRAMIDE INJ 10MG/2ML VIAL (J2765) IV (12:15)
[2018-01-29] MEDS ORDERED: MIRTAZAPINE 15 MG TAB PO (12:15)
[2018-01-29] MEDS: PREGABALIN 75 MG CAP(LYRICA) PO ×2 (13:02→21:39)
[2018-01-29] MEDS: GABAPENTIN 300 MG CAP PO ×2 (15:30→21:38)
[2018-01-29] MEDS: CYCLOBENZAPRINE 10 MG TAB PO (17:05)
[2018-01-29] MEDS ORDERED: PREGABALIN 75 MG CAP(LYRICA) PO (21:00)
[2018-01-30] MEDS: CYCLOBENZAPRINE 10 MG TAB PO (05:16)
[2018-01-30] MEDS: ceFAZolin SOD 1 GM in D5W MINI-BAG PLUS 50 ML IV (06:50)
[2018-01-30] MEDS: PREGABALIN 75 MG CAP(LYRICA) PO (07:43)
[2018-01-30] MEDS: GABAPENTIN 300 MG CAP PO (07:44)
[2018-01-30] MEDS: NS 1,000 ML IV (08:45)
[2018-01-30 09:26] LABS: BASO % 0.2 % (0.0-1.0); EOS % 0.6 % (0.0-3.0); HEMATOCRIT 43.8 % (42.0-52.0); HEMOGLOBIN 15.4 g/dl (13.5-17.5); IMMATURE GRANULOCYTE % 0.2 % (0-3.0); LYMPH # 1.3 10^3/uL (1.5-6.5); LYMPH % 23.7 % (24.0-44.0); MEAN CORPUSCULAR HEMOGLOBIN 30.9 pg (27.0-33.0); MEAN CORPUSCULAR HGB CONC 35.2 g/dl (32.0-36.5); MONO # 0.4 10^3/uL (0.0-0.8); MONO % 8.1 % (0.0-5.0); NEUTROPHILS # 3.6 10^3/uL (1.8-7.7); NEUTROPHILS % 67.2 % (36.0-66.0); PLATELET COUNT, AUTOMATED 241 10^3/uL (150-450); RED BLOOD COUNT 4.98 10^6/uL (4.30-6.10); RED CELL DISTRIBUTION WIDTH 12.4 % (11.5-14.5); WHITE BLOOD COUNT 5.3 10^3/uL (4.0-10.0)
[2018-01-30 10:05] LABS: ANION GAP 6 MEQ/L (8-16); BLOOD UREA NITROGEN 8 MG/DL (7-18); CALCIUM LEVEL 8.9 MG/DL (8.5-10.1); CARBON DIOXIDE LEVEL 34 MEQ/L (21-32); CHLORIDE LEVEL 101 MEQ/L (98-107); CREATININE FOR GFR 0.95 MG/DL (0.70-1.30); GLOMERULAR FILTRATION RATE > 60.0 (>60); GLUCOSE, FASTING 108 MG/DL (70-100); MAGNESIUM LEVEL 2.1 MG/DL (1.8-2.4); POTASSIUM SERUM 3.9 MEQ/L (3.5-5.1); SODIUM LEVEL 141 MEQ/L (136-145)
== END 2018-01-30 11:10 | disposition home or self-care (01) ==
LOC: M SDC 07:41 → M PED 12:40
DX: N50.819 Testicular pain, unspecified (principal); K21.9 Gastro-esophageal reflux disease without esophagitis; Z79.899 Other long term (current) drug therapy; Z87.891 Personal history of nicotine dependence
CPT/HCPCS: 63650

== ENCOUNTER → 2018-02-02 | Outpatient (CLI) | payer OTHER | LOC: M PAIN 10:00 | DX: N50.819 Testicular pain, unspecified (principal); G89.29 Other chronic pain; F17.200 Nicotine dependence, unspecified, uncomplicated; Z79.899 Other long term (current) drug therapy | CPT/HCPCS: 76000 ==

== ENCOUNTER → 2018-02-07 | Outpatient (CLI) | payer OTHER | LOC: M PAIN 15:00 | DX: N50.819 Testicular pain, unspecified (principal); G89.29 Other chronic pain; Z75.0 Medical services not available in home; Z79.899 Other long term (current) drug therapy | CPT/HCPCS: G0463 ==

== ENCOUNTER 2018-02-13 19:58 | Emergency (ER) | payer OTHER ==
[2018-02-13 21:44] LABS: BASO % 0.3 % (0.0-1.0); EOS # 0.1 10^3/uL (0.0-0.50); EOS % 1.2 % (0.0-3.0); HEMATOCRIT 40.3 % (42.0-52.0); HEMOGLOBIN 14.2 g/dl (13.5-17.5); IMMATURE GRANULOCYTE % 0.2 % (0-3.0); LYMPH # 2.4 10^3/uL (1.5-6.5); LYMPH % 22.8 % (24.0-44.0); MEAN CORPUSCULAR HEMOGLOBIN 30.7 pg (27.0-33.0); MEAN CORPUSCULAR HGB CONC 35.2 g/dl (32.0-36.5); MEAN CORPUSCULAR VOLUME 87.2 fl (80.0-96.0); MONO % 9.9 % (0.0-5.0); NEUTROPHILS # 6.8 10^3/uL (1.8-7.7); NEUTROPHILS % 65.6 % (36.0-66.0); PLATELET COUNT, AUTOMATED 289 10^3/uL (150-450); RED BLOOD COUNT 4.62 10^6/uL (4.30-6.10); WHITE BLOOD COUNT 10.4 10^3/uL (4.0-10.0)
[2018-02-13 22:01] LABS: ANION GAP 9 MEQ/L (8-16); BLOOD UREA NITROGEN 14 MG/DL (7-18); C REACTIVE PROTEIN QUANTITATIV 1.03 MG/DL (0.00-0.30); CALCIUM LEVEL 8.4 MG/DL (8.5-10.1); CARBON DIOXIDE LEVEL 26 MEQ/L (21-32); CHLORIDE LEVEL 105 MEQ/L (98-107); CREATININE FOR GFR 0.93 MG/DL (0.70-1.30); GLOMERULAR FILTRATION RATE > 60.0 (>60); GLUCOSE, FASTING 89 MG/DL (70-100); POTASSIUM SERUM 3.9 MEQ/L (3.5-5.1); SODIUM LEVEL 140 MEQ/L (136-145)
[2018-02-13 22:10] LABS: ERYTHROCYTE SEDIMENTATION RATE 3 mm/hr (0-15)
[2018-02-13] MEDS: CLINDAMYCIN 600 MG in APPROPRIATE DILUENT 1 EA IV (22:18)
== END 2018-02-13 23:09 | disposition home or self-care (01) ==
LOC: M ED 19:58
DX: L03.115 Cellulitis of right lower limb (principal); M54.9 Dorsalgia, unspecified; Z96.9 Presence of functional implant, unspecified; Z87.891 Personal history of nicotine dependence; Z79.899 Other long term (current) drug therapy
CPT/HCPCS: 93971

== ENCOUNTER → 2018-05-02 | Outpatient (CLI) | payer OTHER ==
[~2018-05-02] MED LIST changes: +ISOVUE-370 76% 100ML VIAL (Q9967) As Ordered; -LIDOCAINE 2% INJ 100 MG/5 ML SDV (FOR ANES.) As Ordered; -MIDAZOLAM INJ 2 MG/2 ML VIAL (J2250) As Ordered; -PROPOFOL 200 MG/20 ML VIAL As Ordered; -fentaNYL 100 MCG/2 ML INJECTION (J3010) As Ordered
== END ==
LOC: M RAD 12:28
DX: N28.1 Cyst of kidney, acquired (principal)
CPT/HCPCS: Q9967

== ENCOUNTER 2018-05-08 23:39 | Emergency (ER) | payer OTHER ==
[2018-05-09] MEDS: ONDANSETRON 4 MG ORAL DISINTEGRATING TAB (Q0162 PER 1MG) PO (01:01)
[2018-05-09] MEDS: NORCO, ANEXSIA 5/325MG TABLET (HYDROcodone/ACETAMINOPHEN) PO (01:01)
[2018-05-09 01:40] LABS: KETONE, URINE AUTO RFX NEGATIVE (NEGATIVE); LEUKOCYTE ESTERASE UR AUTO RFX NEGATIVE (NEGATIVE); MUCUS, URINE RFX SMALL (NEGATIVE); NITRITE, URINE AUTO RFX NEGATIVE (NEGATIVE); RBC, URINE AUTO RFX 1 /HPF (0-3); SPECIFIC GRAVITY UR AUTO RFX 1.019 (1.002-1.035); SQUAM EPITHELIAL CELL UR AURFX 0 /HPF (0-6); WBC, URINE AUTO RFX 1 /HPF (0-3)
[2018-05-09] MEDS: NORCO 5/325MG TABLET (BULK FOR ED) PO (02:16)
[2018-05-09] MEDS: AZITHROMYCIN 250 MG TAB PO (02:17)
[2018-05-09] MEDS: ACYCLOVIR 200 MG CAPSULE PO (02:18)
[2018-05-09] MEDS: cefTRIAXone SOD 250 MG VIAL (J0696) IM (02:18)
[2018-05-09 03:04] LABS: CHLAMYDIA DNA AMPLIFICATION NEGATIVE (NEGATIVE); GC DNA AMPLIFICATION NEGATIVE (NEGATIVE)
[2018-05-10 08:06] LABS: HSV TYPE I IgG SPECIFIC <0.91 index (0.00-0.90); HSV TYPE II IgG SPECIFIC <0.91 index (0.00-0.90)
== END 2018-05-09 03:03 | disposition home or self-care (01) ==
LOC: M ED 23:39
DX: K62.89 Other specified diseases of anus and rectum (principal); Z96.9 Presence of functional implant, unspecified; R51 Headache; Z79.899 Other long term (current) drug therapy
CPT/HCPCS: J0696

== ENCOUNTER 2018-10-16 09:04 | Day surgery (SDC) | payer OTHER ==
[~2018-10-16] VITALS: Ht 165.1 cm; Wt 63.0 kg
[~2018-10-16 09:04] MED LIST changes: +ACYC200C8 PO; +CELE1CAP4 PO; +CLEO300C2 PO; +CYCL10TA PO; +IBUP-1022 PO; -ISOVUE-370 76% 100ML VIAL (Q9967) As Ordered; +LEVA250T13 PO; +LYRI75CA PO; +MELO15TA28 PO; +MIRT15TA3 PO; +NEUR300C PO; +NS 1,000 ML IV ONE; +TRAZ25TA PO; +TYLE500T78 PO; +ULTR50TA8 PO; +ZOFR4TAB14 PO
[2018-10-16] MEDS ORDERED: LIDOCAINE 2% INJ 100 MG/5 ML SDV (FOR ANES.) As Ordered ONE (11:12)
[2018-10-16] MEDS ORDERED: PROPOFOL 200 MG/20 ML VIAL As Ordered ONE (11:12)
[2018-10-16 12:01] VITALS: BP 124/69
--- NOTE | 2018-10-16 12:03 | ROOR ---
Patient Name: Chago Carpenter Procedure Date: 10/16/2018 11:02 AM Date of : 1995 Age: 23 Room: [facility] Gender: Male Note Status: Finalized Procedure: Flexible Sigmoidoscopy Indications: Hematochezia Providers: Don Perdomo MD Referring MD: JOEL MALDONADO MD Requesting Provider: Medicines: Monitored Anesthesia Care Complications: No immediate complications. Procedure: Pre-Anesthesia Assessment: - Prior to the procedure, a History and Physical was performed, and patient medications and allergies were reviewed. The patient is competent. The risks and benefits of the procedure and the sedation options and risks were discussed with the patient. All questions were answered and informed consent was obtained. Patient identification and proposed procedure were verified by the physician, the nurse and the anesthesiologist in the procedure room. Mental Status Examination: alert and oriented. Airway Examination: normal oropharyngeal airway and neck mobility. Respiratory Examination: clear to auscultation. CV Examination: normal. Prophylactic Antibiotics: The patient does not require prophylactic antibiotics. Prior Anticoagulants: The patient has taken no previous anticoagulant or antiplatelet agents. ASA Grade Assessment: I - A normal, healthy patient. After reviewing the risks and benefits, the patient was deemed in satisfactory condition to undergo the procedure. The anesthesia plan was to use monitored anesthesia care (MAC). Immediately prior to administration of medications, the patient was re-assessed for adequacy to receive sedatives. The heart rate, respiratory rate, oxygen saturations, blood pressure, adequacy of pulmonary ventilation, and response to care were monitored throughout the procedure. The physical status of the patient was re-assessed after the procedure. The Colonoscope was introduced through the anus and advanced to the descending colon. The flexible sigmoidoscopy was accomplished without difficulty. The patient tolerated the procedure well. The quality of the bowel preparation was good. Scope insertion time was 2 minutes. Scope withdrawal time was 6 minutes. The total duration of the procedure was 9 minutes. Findings: The perianal and digital rectal examinations were normal. Few medium sized ( 5mm to 8 mm) polypoid lesions were found in the distal rectum. The lesions were sessile. No bleeding was present. These lesions were removed with a hot biopsy forceps and with a hot snare. Resection and retrieval were complete. Verification of patient identification for the specimen was done by the physician and nurse using the patient's name, date and medical record number. Estimated blood loss was minimal. Non-bleeding external and internal hemorrhoids were found during retroflexion. The hemorrhoids were medium-sized. Impression: - Rule out malignancy, polypoid lesion in the distal rectum. Complete removal was accomplished. Specimen is sent for pathology analysis and also to check for HPV type. - Non-bleeding external and internal hemorrhoids. Recommendation: - The patient will be observed post-procedure, until all discharge criteria are met. - Patient has a contact number available for emergencies. The signs and symptoms of potential delayed complications were discussed with the patient. Return to normal activities tomorrow. Written discharge instructions were provided to the patient. - Resume previous diet. - Preparation H suppository: Insert rectally daily for 5 days. Don Perdomo MD Don Perdomo MD 10/16/2018 12:00:36 PM This report has been signed electronically. Number of Addenda: 0 Note Initiated On: 10/16/2018 11:02 AM Estimated Blood Loss: Estimated blood loss was minimal.
== END 2018-10-16 12:08 | disposition home or self-care (01) ==
LOC: M OPP 09:04
PROVIDERS: ATTEND Internal Medicine Gastroenterology
DX: K92.1 Melena (principal); R85.612 Low grade squamous intraepithelial lesion on cytologic smear of anus (LGSIL); R85.82 Anal low risk human papillomavirus (HPV) DNA test positive; Z79.899 Other long term (current) drug therapy; Z87.891 Personal history of nicotine dependence

== ENCOUNTER → 2018-10-23 | Outpatient (CLI) | payer OTHER ==
[~2018-10-23] MED LIST changes: -NS 1,000 ML IV ONE
[2018-10-23 13:28] LABS: H PYLORI QUALITATIVE IgG NEGATIVE (NEGATIVE)
[2018-10-25 00:07] LABS: TISSUE TRANSGLUTAMINASE IgA <2 U/mL (0-3)
[2018-10-25 08:52] LABS: IGASUB3 53.1 mg/dL (13.4-97.9); IgA SERUM (part of Subclasses) 253 mg/dL (90-386)
== END ==
LOC: M LAB 10:22
PROVIDERS: ATTEND Internal Medicine Gastroenterology
DX: R10.13 Epigastric pain (principal)

== ENCOUNTER 2019-01-12 16:15 | Emergency (ER) | payer OTHER ==
[~2019-01-12] VITALS: Ht 165.1 cm; Wt 61.4 kg
[2019-01-12 16:15] VITALS: BP 136/81
[~2019-01-12 16:15] MED LIST changes: +TRAZ1TAB11 PO; -TRAZ25TA PO
[2019-01-12] MEDS ORDERED: CLAR10CA3 PO (16:50)
[2019-01-12] MEDS ORDERED: BACT800T5 PO (16:50)
[2019-01-12] MEDS ORDERED: LORATADINE 10 MG TAB PO ONE (17:00)
[2019-01-12] MEDS ORDERED: BACTRIM 160MG/800MG DS TAB PO ONE (17:00)
== END 2019-01-12 17:01 | disposition home or self-care (01) ==
LOC: M ED 16:15
DX: S80.861A Insect bite (nonvenomous), right lower leg, initial encounter (principal); L08.9 Local infection of the skin and subcutaneous tissue, unspecified; W57.XXXA Bitten or stung by nonvenomous insect and other nonvenomous arthropods, initial encounter; Y92.89 Other specified places as the place of occurrence of the external cause

== ENCOUNTER 2019-04-04 13:57 | Emergency (ER) | payer OTHER ==
[~2019-04-04] VITALS: Ht 165.1 cm; Wt 58.9 kg
[~2019-04-04 13:57] MED LIST changes: +BACT800T5 PO; +CLAR10CA3 PO
[2019-04-04 16:27] LABS: BASO % 0.6 % (0.0-1.0); EOS # 0.1 10^3/uL (0.0-0.50); EOS % 0.7 % (0.0-3.0); HEMATOCRIT 46.4 % (42.0-52.0); HEMOGLOBIN 16.3 g/dl (13.5-17.5); LYMPH # 2.4 10^3/uL (1.5-6.5); LYMPH % 35.9 % (24.0-44.0); MEAN CORPUSCULAR HEMOGLOBIN 31.7 pg (27.0-33.0); MEAN CORPUSCULAR HGB CONC 35.1 g/dl (32.0-36.5); MEAN CORPUSCULAR VOLUME 90.1 fl (80.0-96.0); MONO # 0.6 10^3/uL (0.0-0.8); MONO % 8.9 % (0.0-5.0); NEUTROPHILS # 3.6 10^3/uL (1.8-7.7); NEUTROPHILS % 53.8 % (36.0-66.0); PLATELET COUNT, AUTOMATED 330 10^3/uL (150-450); RED BLOOD COUNT 5.15 10^6/uL (4.30-6.10); WHITE BLOOD COUNT 6.8 10^3/uL (4.0-10.0)
[2019-04-04 16:56] LABS: ALBUMIN 4.7 GM/DL (3.2-5.2); ALT/SGPT 24 U/L (12-78); BILIRUBIN,DIRECT 0.2 MG/DL (0.0-0.2); BILIRUBIN,TOTAL 0.7 MG/DL (0.2-1.0); BLOOD UREA NITROGEN 9 MG/DL (7-18); CALCIUM LEVEL 9.6 MG/DL (8.5-10.1); CARBON DIOXIDE LEVEL 28 MEQ/L (21-32); CHLORIDE LEVEL 104 MEQ/L (98-107); CREATININE FOR GFR 0.93 MG/DL (0.70-1.30); GLOMERULAR FILTRATION RATE > 60.0 (>60); GLUCOSE, FASTING 83 MG/DL (70-100); LIPASE 123 U/L (73-393); POTASSIUM SERUM 3.5 MEQ/L (3.5-5.1); SODIUM LEVEL 139 MEQ/L (136-145); TOTAL PROTEIN 8.6 GM/DL (6.4-8.2)
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
[2019-04-04 23:41] VITALS: BP 120/71
== END 2019-04-04 23:49 | disposition home or self-care (01) ==
LOC: M ED 13:57
DX: R32 Unspecified urinary incontinence (principal); G89.29 Other chronic pain; M54.5 Low back pain; M54.6 Pain in thoracic spine; K21.9 Gastro-esophageal reflux disease without esophagitis; Z87.891 Personal history of nicotine dependence

== ENCOUNTER → 2019-04-16 | Outpatient (REF) | payer OTHER ==
[~2019-04-16] MED LIST changes: +DITR1TAB PO; +MAPA500T2 PO
[2019-04-16 20:37] LABS: AMORPHOUS SEDIMENT SMALL (NEGATIVE); APPEARANCE, URINE HAZY (CLEAR); BACTERIA, URINE AUTO NEGATIVE (NEGATIVE); BILIRUBIN, URINE AUTO NEGATIVE (NEGATIVE); BLOOD, URINE BLOOD NEGATIVE (NEGATIVE); COLOR, URINE YELLOW (YELLOW); GLUCOSE, URINE (UA) AUTO NEGATIVE (NEGATIVE); KETONE, URINE AUTO NEGATIVE (NEGATIVE); LEUKOCYTE ESTERASE, URINE AUTO NEGATIVE (NEGATIVE); MUCUS, URINE SMALL (NEGATIVE); NITRITE, URINE AUTO NEGATIVE (NEGATIVE); PROTEIN, URINE AUTO NEGATIVE (NEGATIVE); RBC, URINE AUTO 2 /HPF (0-3); SPECIFIC GRAVITY URINE AUTO 1.017 (1.002-1.035); SQUAMOUS EPITHELIAL CELL UR AU 0 /HPF (0-6); UROBILINOGEN, URINE AUTO 0.2 mg/dL (0.0-2.0); WBC, URINE AUTO 2 /HPF (0-3)
== END ==
LOC: M SMT 18:31
PROVIDERS: ATTEND Nurse Practitioner Women's Health
DX: R39.198 Other difficulties with micturition (principal)
CPT/HCPCS: 51798; 81001; 87086; G0463

== ENCOUNTER → 2019-04-18 | Outpatient (CLI) | payer OTHER ==
--- NOTE | 2019-04-18 15:16 | REP ---
RENAL AND BLADDER ULTRASOUND: Real-time sonographic evaluation of the kidneys performed and demonstrates both kidneys to be normal in size and echotexture, the right kidney measuring 11.1 x 3.9 x 4.1 cm and left kidney 11.2 x 4.0 x 5.2 cm. There is mild right hydronephrosis. There is no left hydronephrosis. Cyst in the upper pole of the right kidney measures 3 cm in diameter. Urinary bladder is well distended measuring 12.8 x 9.7 x 8.5 cm for a total volume of 689 mL. Postvoid residual is 79 mL, 10.8% of the original volume. There is some debris in the bladder without evidence of mass or calculus. Ureteral jets are seen in the urinary bladder bilaterally with Doppler color evaluation. IMPRESSION: Mild right hydronephrosis. Simple cyst upper pole right kidney 3 cm in diameter. Some debris in the bladder. Postvoid residual of 10.8%. Electronically Signed by Hong Ferreira MD 04/18/2019 04:41 P
== END ==
LOC: M RAD 14:16
PROVIDERS: ATTEND Nurse Practitioner Women's Health
DX: R32 Unspecified urinary incontinence (principal)

== ENCOUNTER 2019-07-18 22:18 | Emergency (ER) | payer OTHER ==
[~2019-07-18] VITALS: Ht 165.1 cm; Wt 59.1 kg
[2019-07-18 22:19] VITALS: BP 143/78
[2019-07-18] MEDS ORDERED: ONDANSETRON 4 MG ORAL DISINTEGRATING TAB (Q0162 PER 1MG) PO ONE (23:15)
[2019-07-18] MEDS ORDERED: ACETAMINOPHEN 325 MG TAB PO ONE (23:15)
[2019-07-19 00:34] LABS: INFLUENZA A AMPLIFICATION NEGATIVE (NEGATIVE); INFLUENZA B AMPLIFICATION NEGATIVE (NEGATIVE)
== END 2019-07-19 01:03 | disposition home or self-care (01) ==
LOC: M ED 22:18
DX: B34.9 Viral infection, unspecified (principal); Z79.899 Other long term (current) drug therapy
CPT/HCPCS: 87502; 99282; Q0162

== ENCOUNTER 2019-09-02 06:30 | Day surgery (SDC) | payer OTHER ==
[~2019-09-02] VITALS: Ht 165.1 cm; Wt 59.9 kg
[~2019-09-02 06:30] MED LIST changes: +CYMB1CAP5 PO; +NS 1,000 ML IV ONE; +NS 1,000 ML IV SCH
[2019-09-02] MEDS ORDERED: propofoL 500 MG/50 ML VIAL As Ordered ONE (07:26)
[2019-09-02] MEDS ORDERED: LIDOCAINE 2% INJ 100 MG/5 ML SDV (FOR ANES.) As Ordered ONE (07:26)
[2019-09-02] MEDS ORDERED: fentaNYL 100 MCG/2 ML INJECTION (J3010) As Ordered ONE (07:30)
--- NOTE | 2019-09-02 08:20 | ROOR ---
Patient Name: Chago Caprenter Procedure Date: 09/02/2019 7:41 AM Date of : 1995 Age: 24 Room: [facility] Gender: Male Note Status: Finalized Procedure: Upper GI endoscopy Indications: Persistent vomiting of unknown cause, Weight loss Providers: Don Perdomo MD Referring MD: Wenceslao See Requesting Provider: Medicines: Monitored Anesthesia Care Complications: No immediate complications. Procedure: Pre-Anesthesia Assessment: - Prior to the procedure, a History and Physical was performed, and patient medications and allergies were reviewed. The patient is competent. The risks and benefits of the procedure and the sedation options and risks were discussed with the patient. All questions were answered and informed consent was obtained. Patient identification and proposed procedure were verified by the physician, the nurse and the anesthesiologist in the procedure room. Mental Status Examination: alert and oriented. Airway Examination: normal oropharyngeal airway and neck mobility. Respiratory Examination: clear to auscultation. CV Examination: normal. Prophylactic Antibiotics: The patient does not require prophylactic antibiotics. Prior Anticoagulants: The patient has taken no previous anticoagulant or antiplatelet agents. ASA Grade Assessment: II - A patient with mild systemic disease. After reviewing the risks and benefits, the patient was deemed in satisfactory condition to undergo the procedure. The anesthesia plan was to use monitored anesthesia care (MAC). Immediately prior to administration of medications, the patient was re-assessed for adequacy to receive sedatives. The heart rate, respiratory rate, oxygen saturations, blood pressure, adequacy of pulmonary ventilation, and response to care were monitored throughout the procedure. The physical status of the patient was re-assessed after the procedure. The Endoscope was introduced through the mouth, and advanced to the second part of duodenum. The upper GI endoscopy was accomplished without difficulty. The patient tolerated the procedure well. Findings: The Z-line was regular and was found 39 cm from the incisors. Scattered mild inflammation characterized by erythema and granularity was found in the gastric antrum. Biopsies were taken with a cold forceps for Helicobacter pylori testing. Verification of patient identification for the specimen was done by the physician and nurse using the patient's name, date and medical record number. Estimated blood loss was minimal. The duodenal bulb and second portion of the duodenum were normal. Biopsies for histology were taken with a cold forceps for evaluation of celiac disease. Impression: - Z-line regular, 39 cm from the incisors. - Gastritis. Biopsied. - Normal duodenal bulb and second portion of the duodenum. Biopsied. Recommendation: - Patient has a contact number available for emergencies. The signs and symptoms of potential delayed complications were discussed with the patient. Return to normal activities tomorrow. Written discharge instructions were provided to the patient. - Resume previous diet. - Continue present medications. - Await pathology results. - Telephone GI clinic for pathology results in 2 weeks. - Return to primary care physician. Don Perdomo MD Don Perdomo MD 09/02/2019 8:19:40 AM Electronically signed by Don Perdomo MD Number of Addenda: 0 Note Initiated On: 09/02/2019 7:41 AM Estimated Blood Loss: Estimated blood loss was minimal.
[2019-09-02 08:45] VITALS: BP 105/70
--- NOTE | 2019-09-02 08:45 | ROOR ---
Patient Name: Chago Carpenter Procedure Date: 09/02/2019 7:42 AM Date of : 1995 Age: 24 Room: [facility] Gender: Male Note Status: Finalized Procedure: Flexible Sigmoidoscopy Indications: Weight loss Providers: Don Perdomo MD Referring MD: Wenceslao See Requesting Provider: Medicines: Monitored Anesthesia Care Complications: No immediate complications. Procedure: Pre-Anesthesia Assessment: - Prior to the procedure, a History and Physical was performed, and patient medications and allergies were reviewed. The patient is competent. The risks and benefits of the procedure and the sedation options and risks were discussed with the patient. All questions were answered and informed consent was obtained. Patient identification and proposed procedure were verified by the physician, the nurse and the anesthesiologist in the procedure room. Mental Status Examination: alert and oriented. Airway Examination: normal oropharyngeal airway and neck mobility. Respiratory Examination: clear to auscultation. CV Examination: normal. Prophylactic Antibiotics: The patient does not require prophylactic antibiotics. Prior Anticoagulants: The patient has taken no previous anticoagulant or antiplatelet agents. ASA Grade Assessment: II - A patient with mild systemic disease. After reviewing the risks and benefits, the patient was deemed in satisfactory condition to undergo the procedure. The anesthesia plan was to use monitored anesthesia care (MAC). Immediately prior to administration of medications, the patient was re-assessed for adequacy to receive sedatives. The heart rate, respiratory rate, oxygen saturations, blood pressure, adequacy of pulmonary ventilation, and response to care were monitored throughout the procedure. The physical status of the patient was re-assessed after the procedure. The Colonoscope was introduced through the anus and advanced to the left transverse colon. The flexible sigmoidoscopy was accomplished without difficulty. The patient tolerated the procedure well. Scope insertion time was 2 minutes. Scope withdrawal time was 8 minutes. The total duration of the procedure was 10 minutes. The quality of the bowel preparation was adequate. Findings: The perianal and digital rectal examinations were normal. Anal papilla(e) were hypertrophied. Biopsies were taken with a cold forceps for histology. Verification of patient identification for the specimen was done by the physician and nurse using the patient's name, date and medical record number. Few 2 mm condylomata were found. The polyp was removed with a hot biopsy forceps. Resection and retrieval were complete. Non-bleeding external and internal hemorrhoids were found during retroflexion. The hemorrhoids were small. Impression: - Anal papilla(e) were hypertrophied. Biopsied. - Condylomata. - Non-bleeding external and internal hemorrhoids. Recommendation: - The patient will be observed post-procedure, until all discharge criteria are met. - Patient has a contact number available for emergencies. The signs and symptoms of potential delayed complications were discussed with the patient. Return to normal activities tomorrow. Written discharge instructions were provided to the patient. - Resume previous diet. - Continue present medications. - Await pathology results. - Telephone GI clinic for pathology results in 2 weeks. - Return to GI clinic if persistent symptoms or new symptoms. - Return to primary care physician. Don Perdomo MD Don Perdomo MD 09/02/2019 8:44:38 AM Electronically signed by Don Perdomo MD Number of Addenda: 0 Note Initiated On: 09/02/2019 7:42 AM Estimated Blood Loss: Estimated blood loss was minimal.
== END 2019-09-02 09:10 | disposition home or self-care (01) ==
LOC: M OPP 06:30
PROVIDERS: ATTEND Internal Medicine Gastroenterology
DX: K62.89 Other specified diseases of anus and rectum (principal); A63.0 Anogenital (venereal) warts; K64.8 Other hemorrhoids; R63.4 Abnormal weight loss; K29.70 Gastritis, unspecified, without bleeding; R11.10 Vomiting, unspecified; Z79.899 Other long term (current) drug therapy; F17.290 Nicotine dependence, other tobacco product, uncomplicated
CPT/HCPCS: 43239; 45380; 45384; 88305; J3010